=== PATIENT | male | born 1950 | race Caucasian/White ===

== ENCOUNTER 2016-11-06 20:12 | Inpatient (IN) | payer MEDICARE, OTHER ==
[~2016-11-06] VITALS: Ht 193 cm; Wt 83.4 kg
[2016-11-06 20:00] VITALS: BP 147/74
[2016-11-06] MEDS ORDERED: [UNRECOGNIZED DRUG - OTHER] PO (20:34)
[2016-11-06] MEDS ORDERED: HYDROmorphone 1 MG/ML, 1ML ONE (21:18)
[2016-11-06] MEDS: PLEASE ENTER ALLERGIES MC SCH ×2 (21:30)
[2016-11-06] MEDS ORDERED: ENALAPRILAT 1.25 MG/ML, 2ML IVPush PRN (21:30)
[2016-11-06] MEDS ORDERED: HYDROmorphone 1 MG/ML, 1ML IV ONE (21:30)
[2016-11-06] MEDS ORDERED: TEMAZEPAM 15 MG CAPSULE PO PRN (21:30)
[2016-11-06] MEDS ORDERED: ONDANSETRON ODT 4 MG PO PRN (21:30)
[2016-11-06] MEDS: ENOXAPARIN 40 MG/0.4 ML SQ SCH (22:00)
[2016-11-06 23:12] LABS: IS PT STATUS REG ER OR PRE ER? NO
[2016-11-07 01:20] LABS: BLOOD UREA NITROGEN 31 mg/dL (7-18)
[2016-11-07 02:00] VITALS: BP 123/69
[2016-11-07] MEDS ORDERED: OMNIPAQUE 350 MG/ML, 100ML BOTTLE ONE (02:47)
[2016-11-07] MEDS: HYDROmorphone 2 MG/ML, 1ML IVPush PRN ×5 (02:52→22:29)
[2016-11-07] MEDS: SODIUM CHLORIDE 0.9% 1,000 ML IV SCH ×2 (02:57→18:16)
[2016-11-07 03:53] LABS: BLOOD UREA NITROGEN 30 mg/dL (7-18)
[2016-11-07 03:57] LABS: IS PT STATUS REG ER OR PRE ER? NO
[2016-11-07 04:27] LABS: DIFF TOTAL CELLS COUNTED 100 CELL DIFF; HEMOGLOBIN 12.2 g/dL (13.7-18.0); WHITE BLOOD COUNT 19.5 x10^3/uL (3.4-10)
[2016-11-07] MEDS ORDERED: ALBUTEROL SULFATE 2.5 MG/3 ML NPPB PRN (04:30)
[2016-11-07] MEDS: PLEASE ENTER ALLERGIES MC SCH ×6 (04:33→19:14)
[2016-11-07 04:37] LABS: VERIFY COUNTS? YES
[2016-11-07 04:38] LABS: ANISOCYTOSIS 1+; MICROCYTOSIS 1+; POLYCHROMASIA 1+
[2016-11-07 08:14] VITALS: BP 162/74
[2016-11-07] MEDS: SENNA/DOCUSATE TABLET PO SCH (08:14)
[2016-11-07] MEDS ORDERED: FENTANYL 25 MCG PATCH TD SCH (12:30)
[2016-11-07] MEDS ORDERED: FENTANYL REMOVE PATCH NOTE XX SCH (12:31)
[2016-11-07 13:53] VITALS: BP 125/74
[2016-11-07] MEDS: MAGNESIUM OXIDE 400 MG TABLET PO SCH (13:57)
[2016-11-07 20:00] VITALS: BP 127/69
[2016-11-07] MEDS: ENOXAPARIN 40 MG/0.4 ML SQ SCH (21:36)
[2016-11-08 02:00] VITALS: BP 125/69
[2016-11-08] MEDS: SODIUM CHLORIDE 0.9% 1,000 ML IV SCH (02:40)
[2016-11-08] MEDS: HYDROmorphone 2 MG/ML, 1ML IVPush PRN ×4 (02:50→21:16)
[2016-11-08 05:16] LABS: HEMATOCRIT 38.1 % (39.2-51.8); HEMOGLOBIN 12.4 g/dL (13.7-18.0); WHITE BLOOD COUNT 22.1 x10^3/uL (3.4-10)
[2016-11-08 05:44] LABS: HIV 1&2 ANTIBODY SCREEN Nonreactive (Nonreactive); HIV-1 p24 ANTIGEN Nonreactive (Nonreactive)
[2016-11-08 05:53] LABS: DIFF TOTAL CELLS COUNTED 100 CELL DIFF
[2016-11-08 06:03] LABS: ANISOCYTOSIS 1+; VERIFY COUNTS? YES
[2016-11-08 06:04] LABS: POLYCHROMASIA 1+
[2016-11-08 06:09] LABS: ASPARTATE AMINO TRANSFERASE 318 U/L (15-37); BLOOD UREA NITROGEN 49 mg/dL (7-18)
[2016-11-08 07:01] VITALS: BP 135/57
[2016-11-08] MEDS: SENNA/DOCUSATE TABLET PO SCH (08:18)
[2016-11-08] MEDS: ONDANSETRON 2MG/ML, 2ML IV PRN (08:18)
[2016-11-08] MEDS: MAGNESIUM OXIDE 400 MG TABLET PO SCH (08:18)
[2016-11-08] MEDS ORDERED: LIDOCAINE 1%, 20ML ONE (09:42)
[2016-11-08] MEDS ORDERED: SODIUM POLYSTYRENE SULFONATE ORAL SUSP PO ONE (10:00)
[2016-11-08] MEDS ORDERED: MIDAZOLAM 1 MG/ML, 5ML ONE (10:17)
[2016-11-08] MEDS ORDERED: FENTANYL PF 100 MCG/2ML ONE (10:17)
[2016-11-08 12:26] LABS: BLOOD UREA NITROGEN 60 mg/dL (7-18)
[2016-11-08 12:32] LABS: IS PT STATUS REG ER OR PRE ER? NO
[2016-11-08 12:43] LABS: FERRITIN 2642.8 ng/mL (26-388); TOTAL IRON BINDING CAPACITY 254 mcg/dL (250-450)
[2016-11-08 13:10] LABS: LACTATE DEHYDROGENASE > 4000 U/L (87-241)
[2016-11-08 13:28] VITALS: BP 133/59
[2016-11-08] MEDS ORDERED: RASBURICASE 3 MG in SODIUM CHLORIDE 0.9% 50 ML IV ONE (16:00)
[2016-11-08] MEDS: GABAPENTIN 100 MG CAPSULE PO SCH ×2 (17:26→20:49)
[2016-11-08 18:46] VITALS: BP 134/65
[2016-11-08] MEDS ORDERED: ENOXAPARIN 40 MG/0.4 ML SQ SCH (22:00)
[2016-11-09 01:05] VITALS: BP 144/64
[2016-11-09] MEDS ORDERED: SODIUM CHLORIDE 0.9% 1,000 ML IV SCH (02:05)
[2016-11-09] MEDS: SODIUM CHLORIDE 0.9% 1,000 ML IV SCH ×5 (03:27→20:41)
[2016-11-09] MEDS: HYDROmorphone 2 MG/ML, 1ML IVPush PRN ×2 (05:12→17:02)
[2016-11-09 05:49] LABS: BLOOD UREA NITROGEN 64 mg/dL (7-18)
[2016-11-09 05:52] LABS: ASPARTATE AMINO TRANSFERASE 529 U/L (15-37)
[2016-11-09 06:05] LABS: HEMATOCRIT 34.5 % (39.2-51.8); HEMOGLOBIN 11.3 g/dL (13.7-18.0); WHITE BLOOD COUNT 16.1 x10^3/uL (3.4-10)
[2016-11-09 06:06] LABS: DIFF TOTAL CELLS COUNTED 100 CELL DIFF
[2016-11-09 06:15] LABS: ANISOCYTOSIS 1+; POLYCHROMASIA 1+; VERIFY COUNTS? YES
[2016-11-09 07:44] VITALS: BP 162/66
[2016-11-09] MEDS: MAGNESIUM OXIDE 400 MG TABLET PO SCH (08:10)
[2016-11-09] MEDS: GABAPENTIN 100 MG CAPSULE PO SCH ×2 (08:13→20:31)
[2016-11-09] MEDS: SENNA/DOCUSATE TABLET PO SCH (08:13)
[2016-11-09 13:10] VITALS: BP 141/62
[2016-11-09] MEDS ORDERED: RASBURICASE 3 MG in SODIUM CHLORIDE 0.9% 50 ML IV ONE (13:30)
[2016-11-09 20:30] VITALS: BP 135/69
[2016-11-10 01:17] VITALS: BP 143/67
[2016-11-10] MEDS: SODIUM CHLORIDE 0.9% 1,000 ML IV SCH ×3 (03:10→20:49)
[2016-11-10 04:57] LABS: HEMATOCRIT 32.5 % (39.2-51.8); HEMOGLOBIN 10.8 g/dL (13.7-18.0); WHITE BLOOD COUNT 10.6 x10^3/uL (3.4-10)
[2016-11-10 05:03] LABS: BLOOD UREA NITROGEN 44 mg/dL (7-18)
[2016-11-10 05:07] LABS: ASPARTATE AMINO TRANSFERASE 352 U/L (15-37)
[2016-11-10 07:09] LABS: DIFF TOTAL CELLS COUNTED 100 CELL DIFF
[2016-11-10 07:18] LABS: VERIFY COUNTS? YES
[2016-11-10 07:19] LABS: ANISOCYTOSIS 1+; POLYCHROMASIA 1+
[2016-11-10 07:25] VITALS: BP 131/65
[2016-11-10] MEDS: HYDROmorphone 2 MG/ML, 1ML IVPush PRN ×2 (08:38→20:49)
[2016-11-10] MEDS: SENNA/DOCUSATE TABLET PO SCH (08:39)
[2016-11-10] MEDS: MAGNESIUM OXIDE 400 MG TABLET PO SCH (08:39)
[2016-11-10] MEDS: GABAPENTIN 100 MG CAPSULE PO SCH ×2 (08:39→20:50)
[2016-11-10] MEDS: ALLOPURINOL 100 MG TABLET PO SCH ×2 (11:19→20:50)
[2016-11-10 13:15] VITALS: BP 147/69
[2016-11-10 19:51] VITALS: BP 124/63
[2016-11-11 02:13] VITALS: BP 147/65
[2016-11-11 05:03] LABS: BLOOD UREA NITROGEN 35 mg/dL (7-18)
[2016-11-11 05:06] LABS: ASPARTATE AMINO TRANSFERASE 242 U/L (15-37)
[2016-11-11 05:16] LABS: DIFF TOTAL CELLS COUNTED 100 CELL DIFF; HEMATOCRIT 32.1 % (39.2-51.8); HEMOGLOBIN 10.6 g/dL (13.7-18.0); WHITE BLOOD COUNT 9.4 x10^3/uL (3.4-10)
[2016-11-11 05:21] LABS: ANISOCYTOSIS 1+; POLYCHROMASIA 1+; VERIFY COUNTS? YES
[2016-11-11] MEDS: SODIUM CHLORIDE 0.9% 1,000 ML IV SCH ×3 (05:55→23:32)
[2016-11-11 08:50] VITALS: BP 148/56
[2016-11-11] MEDS: MAGNESIUM OXIDE 400 MG TABLET PO SCH (09:20)
[2016-11-11] MEDS: GABAPENTIN 100 MG CAPSULE PO SCH ×2 (09:21→20:36)
[2016-11-11] MEDS: SENNA/DOCUSATE TABLET PO SCH (09:21)
[2016-11-11] MEDS: HYDROmorphone 2 MG/ML, 1ML IVPush PRN ×2 (09:26→20:36)
[2016-11-11] MEDS ORDERED: OMNIPAQUE 350 MG/ML, 100ML BOTTLE ONE (12:45)
[2016-11-11 14:56] VITALS: BP 147/69
[2016-11-11 19:26] VITALS: BP 144/66
[2016-11-12] MEDS: HYDROmorphone 2 MG/ML, 1ML IVPush PRN ×5 (01:08→22:01)
[2016-11-12 01:35] VITALS: BP 165/72
[2016-11-12 04:50] LABS: BLOOD UREA NITROGEN 23 mg/dL (7-18)
[2016-11-12 05:05] LABS: ASPARTATE AMINO TRANSFERASE 177 U/L (15-37)
[2016-11-12 05:10] LABS: LACTATE DEHYDROGENASE 3154 U/L (87-241)
[2016-11-12 06:06] LABS: HEMATOCRIT 32.1 % (39.2-51.8); HEMOGLOBIN 10.6 g/dL (13.7-18.0); WHITE BLOOD COUNT 8.4 x10^3/uL (3.4-10)
[2016-11-12] MEDS: POLYETHYLENE GLYCOL 17 GM PACKET PO PRN (06:06)
[2016-11-12 06:09] LABS: DIFF TOTAL CELLS COUNTED 100 CELL DIFF
[2016-11-12 06:18] LABS: ANISOCYTOSIS 1+; POLYCHROMASIA 1+; VERIFY COUNTS? YES
[2016-11-12 06:19] LABS: LARGE PLATELETS 1+
[2016-11-12 08:25] VITALS: BP 145/71
[2016-11-12] MEDS: ALLOPURINOL 300 MG TABLET PO SCH (08:37)
[2016-11-12] MEDS: MAGNESIUM OXIDE 400 MG TABLET PO SCH (08:37)
[2016-11-12] MEDS: SENNA/DOCUSATE TABLET PO SCH (08:37)
[2016-11-12] MEDS: GABAPENTIN 100 MG CAPSULE PO SCH ×2 (08:37→22:00)
[2016-11-12] MEDS: SODIUM CHLORIDE 0.9% 1,000 ML IV SCH ×2 (11:50→22:01)
[2016-11-12 13:13] VITALS: BP 156/90
[2016-11-12 19:43] VITALS: BP 165/73
[2016-11-13] MEDS: HYDROmorphone 2 MG/ML, 1ML IVPush PRN ×7 (02:07→23:59)
[2016-11-13 02:13] VITALS: BP 168/64
[2016-11-13 05:42] LABS: HEMATOCRIT 32.4 % (39.2-51.8); HEMOGLOBIN 10.7 g/dL (13.7-18.0); WHITE BLOOD COUNT 9.1 x10^3/uL (3.4-10)
[2016-11-13 05:48] LABS: ASPARTATE AMINO TRANSFERASE 138 U/L (15-37); BLOOD UREA NITROGEN 18 mg/dL (7-18)
[2016-11-13 06:13] LABS: DIFF TOTAL CELLS COUNTED 100 CELL DIFF
[2016-11-13 06:33] LABS: ANISOCYTOSIS 1+
[2016-11-13 06:34] LABS: LARGE PLATELETS 1+; POIKILOCYTOSIS 1+; POLYCHROMASIA 1+; VERIFY COUNTS? YES
[2016-11-13 06:35] VITALS: BP 133/73
[2016-11-13] MEDS: SODIUM CHLORIDE 0.9% 1,000 ML IV SCH (08:00)
[2016-11-13] MEDS ORDERED: FUROSEMIDE 20 MG/2 ML IV ONE (08:30)
[2016-11-13] MEDS: SENNA/DOCUSATE TABLET PO SCH (09:14)
[2016-11-13] MEDS: GABAPENTIN 100 MG CAPSULE PO SCH ×2 (09:14→21:13)
[2016-11-13] MEDS: MAGNESIUM OXIDE 400 MG TABLET PO SCH (09:14)
[2016-11-13] MEDS: ALLOPURINOL 300 MG TABLET PO SCH (09:14)
[2016-11-13 13:51] VITALS: BP 151/76
[2016-11-13 19:31] VITALS: BP 170/76
[2016-11-13] MEDS ORDERED: HYDROCORTISONE 100 MG INJ. IV ONE (20:30)
[2016-11-14 02:24] VITALS: BP 188/74
[2016-11-14] MEDS: HYDROmorphone 2 MG/ML, 1ML IVPush PRN ×4 (03:02→21:40)
[2016-11-14 03:32] LABS: BLOOD UREA NITROGEN 19 mg/dL (7-18)
[2016-11-14 03:58] LABS: HEMATOCRIT 32.6 % (39.2-51.8); HEMOGLOBIN 10.8 g/dL (13.7-18.0); WHITE BLOOD COUNT 9.1 x10^3/uL (3.4-10)
[2016-11-14 04:02] LABS: DIFF TOTAL CELLS COUNTED 100 CELL DIFF
[2016-11-14 04:07] LABS: VERIFY COUNTS? YES
[2016-11-14 04:08] LABS: ANISOCYTOSIS 1+; LARGE PLATELETS 1+; POIKILOCYTOSIS 1+; POLYCHROMASIA 1+
[2016-11-14 08:00] VITALS: BP 156/75
[2016-11-14] MEDS: SENNA/DOCUSATE TABLET PO SCH (09:12)
[2016-11-14] MEDS: ALLOPURINOL 300 MG TABLET PO SCH (09:12)
[2016-11-14] MEDS: MAGNESIUM OXIDE 400 MG TABLET PO SCH (09:12)
[2016-11-14] MEDS: GABAPENTIN 100 MG CAPSULE PO SCH ×2 (09:13→20:16)
[2016-11-14] MEDS ORDERED: PROCHLORPERAZINE 10MG TABLET PO PRN (13:30)
[2016-11-14 13:51] VITALS: BP 158/76
[2016-11-14 19:32] VITALS: BP 149/69
[2016-11-15 01:25] VITALS: BP 168/76
[2016-11-15] MEDS: HYDROmorphone 2 MG/ML, 1ML IVPush PRN ×3 (03:21→14:04)
[2016-11-15 03:39] LABS: HEMATOCRIT 32.5 % (39.2-51.8); HEMOGLOBIN 10.7 g/dL (13.7-18.0); WHITE BLOOD COUNT 9.6 x10^3/uL (3.4-10)
[2016-11-15 03:48] LABS: ASPARTATE AMINO TRANSFERASE 127 U/L (15-37); BLOOD UREA NITROGEN 19 mg/dL (7-18)
[2016-11-15 04:07] LABS: DIFF TOTAL CELLS COUNTED 100 CELL DIFF
[2016-11-15 04:14] LABS: ANISOCYTOSIS 1+; LARGE PLATELETS 1+; POIKILOCYTOSIS 1+; POLYCHROMASIA 1+; VERIFY COUNTS? YES
[2016-11-15 07:49] VITALS: BP 149/72
[2016-11-15] MEDS: GABAPENTIN 100 MG CAPSULE PO SCH ×2 (07:55→20:19)
[2016-11-15] MEDS: ALLOPURINOL 300 MG TABLET PO SCH (07:55)
[2016-11-15] MEDS: MAGNESIUM OXIDE 400 MG TABLET PO SCH ×2 (07:55→20:19)
[2016-11-15] MEDS: SENNA/DOCUSATE TABLET PO SCH (07:59)
[2016-11-15] MEDS ORDERED: FUROSEMIDE 20 MG/2 ML IV ONE (10:00)
[2016-11-15] MEDS ORDERED: DIPHENHYDRAMINE 50 MG/ML, 1ML IVPush ONE (10:00)
[2016-11-15] MEDS ORDERED: ACETAMINOPHEN 325 MG TABLET PO ONE (10:00)
[2016-11-15] MEDS ORDERED: FAMOTIDINE 20 MG/2 ML IVPush ONE (10:00)
[2016-11-15] MEDS ORDERED: POTASSIUM CHLORIDE 20 MEQ TAB.ER.PRT PO ONE (10:00)
[2016-11-15] MEDS ORDERED: SODIUM CHLORIDE 0.9% IV ONE (10:30)
[2016-11-15] MEDS ORDERED: RITUXIMAB IV ONE (10:30)
[2016-11-15] MEDS: ONDANSETRON 2MG/ML, 2ML IV PRN (11:39)
[2016-11-15] MEDS ORDERED: DEXAMETHASONE 4 MG/ML, 5ML ONE (12:13)
[2016-11-15] MEDS ORDERED: DEXAMETHASONE 4 MG/ML, 5ML IVPush ONE (12:30)
[2016-11-15 12:31] VITALS: BP 132/76
[2016-11-15 12:39] VITALS: BP 116/68
[2016-11-15 14:07] VITALS: BP 121/67
[2016-11-15 20:03] VITALS: BP 127/65
[2016-11-16 00:59] VITALS: BP 148/69
[2016-11-16 04:32] LABS: HEMATOCRIT 31.6 % (39.2-51.8); HEMOGLOBIN 10.3 g/dL (13.7-18.0); WHITE BLOOD COUNT 6.8 x10^3/uL (3.4-10)
[2016-11-16 04:37] LABS: ASPARTATE AMINO TRANSFERASE 284 U/L (15-37); BLOOD UREA NITROGEN 33 mg/dL (7-18)
[2016-11-16] MEDS: HYDROmorphone 2 MG/ML, 1ML IVPush PRN ×3 (04:50→20:02)
[2016-11-16 05:01] LABS: DIFF TOTAL CELLS COUNTED 100 CELL DIFF
[2016-11-16 05:06] LABS: VERIFY COUNTS? YES
[2016-11-16 05:07] LABS: ANISOCYTOSIS 1+; POLYCHROMASIA 1+
[2016-11-16 05:09] LABS: LARGE PLATELETS 1+
[2016-11-16 06:30] VITALS: BP 134/71
[2016-11-16] MEDS: predniSONE 50MG TABLET PO SCH (08:31)
[2016-11-16] MEDS: GABAPENTIN 100 MG CAPSULE PO SCH ×2 (08:31→19:49)
[2016-11-16] MEDS: SENNA/DOCUSATE TABLET PO SCH (08:31)
[2016-11-16] MEDS: MAGNESIUM OXIDE 400 MG TABLET PO SCH (08:31)
[2016-11-16] MEDS: ALLOPURINOL 300 MG TABLET PO SCH (08:31)
[2016-11-16] MEDS: ONDANSETRON 16 MG, DEXAMETHASONE 10 MG in SODIUM CHLORIDE 0.9% 50 ML IVPB SCH (10:07)
[2016-11-16] MEDS ORDERED: CYCLOPHOSPHAMIDE IV SCH (10:30)
[2016-11-16] MEDS ORDERED: vinCRIStine 1 MG in SODIUM CHLORIDE 0.9% 25 ML IV SCH (10:30)
[2016-11-16] MEDS ORDERED: SODIUM CHLORIDE 0.9% IV SCH (10:30)
[2016-11-16 12:49] VITALS: BP 144/81
[2016-11-16] MEDS: POLYETHYLENE GLYCOL 17 GM PACKET PO PRN (16:30)
[2016-11-16 19:09] VITALS: BP 150/73
[2016-11-17 02:04] VITALS: BP 148/72
[2016-11-17] MEDS: HYDROmorphone 2 MG/ML, 1ML IVPush PRN (05:30)
[2016-11-17 05:36] LABS: ASPARTATE AMINO TRANSFERASE 212 U/L (15-37); BLOOD UREA NITROGEN 36 mg/dL (7-18)
[2016-11-17 05:49] LABS: LACTATE DEHYDROGENASE > 4000 U/L (87-241)
[2016-11-17 05:54] LABS: HEMATOCRIT 31.9 % (39.2-51.8); HEMOGLOBIN 10.5 g/dL (13.7-18.0); WHITE BLOOD COUNT 4.4 x10^3/uL (3.4-10)
[2016-11-17 05:55] LABS: DIFF TOTAL CELLS COUNTED 100 CELL DIFF
[2016-11-17 05:59] LABS: ANISOCYTOSIS 1+; POLYCHROMASIA 1+; VERIFY COUNTS? YES
[2016-11-17 06:52] VITALS: BP 154/73
[2016-11-17] MEDS: POLYETHYLENE GLYCOL 17 GM PACKET PO PRN (08:34)
[2016-11-17] MEDS: GABAPENTIN 100 MG CAPSULE PO SCH ×2 (08:35→21:18)
[2016-11-17] MEDS: SENNA/DOCUSATE TABLET PO SCH (08:35)
[2016-11-17] MEDS: predniSONE 50MG TABLET PO SCH (08:35)
[2016-11-17] MEDS: ALLOPURINOL 300 MG TABLET PO SCH (08:36)
[2016-11-17] MEDS: ONDANSETRON 16 MG, DEXAMETHASONE 10 MG in SODIUM CHLORIDE 0.9% 50 ML IVPB SCH ×2 (12:00→12:09)
[2016-11-17] MEDS ORDERED: ONDANSETRON 16 MG in SODIUM CHLORIDE 0.9% 50 ML IVPB ONE (12:30)
[2016-11-17 13:21] VITALS: BP 146/77
[2016-11-17] MEDS ORDERED: SODIUM CHLORIDE 0.9% 1,000 ML IV SCH (17:30)
[2016-11-17 19:28] VITALS: BP 148/72
[2016-11-18 02:54] VITALS: BP 170/77
[2016-11-18 03:08] VITALS: BP 162/83
[2016-11-18 05:31] LABS: HEMATOCRIT 27.1 % (39.2-51.8); HEMOGLOBIN 9.1 g/dL (13.7-18.0); WHITE BLOOD COUNT 2.6 x10^3/uL (3.4-10)
[2016-11-18 05:34] LABS: BLOOD UREA NITROGEN 32 mg/dL (7-18)
[2016-11-18 05:35] LABS: ASPARTATE AMINO TRANSFERASE 96 U/L (15-37)
[2016-11-18 06:04] LABS: DIFF TOTAL CELLS COUNTED 100 CELL DIFF
[2016-11-18 06:07] LABS: ANISOCYTOSIS 1+; POLYCHROMASIA 1+; VERIFY COUNTS? YES
[2016-11-18 07:07] VITALS: BP 164/62
[2016-11-18] MEDS: predniSONE 50MG TABLET PO SCH (09:04)
[2016-11-18] MEDS: ALLOPURINOL 300 MG TABLET PO SCH (09:04)
[2016-11-18] MEDS: SENNA/DOCUSATE TABLET PO SCH (09:05)
[2016-11-18] MEDS: GABAPENTIN 100 MG CAPSULE PO SCH ×2 (09:05→20:14)
[2016-11-18] MEDS: POLYETHYLENE GLYCOL 17 GM PACKET PO PRN (09:20)
[2016-11-18 12:15] VITALS: BP 163/84
[2016-11-18] MEDS ORDERED: HYDROCORTISONE 100 MG INJ. IV PRN ×2 (17:00)
[2016-11-18] MEDS ORDERED: TBO-FILGRASTIM 480 MCG/0.8 ML SQ PRN (17:00)
[2016-11-18] MEDS: SODIUM CHLORIDE 0.9% 1,000 ML IV SCH (18:13)
[2016-11-18 19:48] VITALS: BP 159/79
[2016-11-19 02:18] VITALS: BP 164/70
[2016-11-19 05:57] LABS: ASPARTATE AMINO TRANSFERASE 32 U/L (15-37); BLOOD UREA NITROGEN 7 mg/dL (7-18)
[2016-11-19 07:09] VITALS: BP 164/73
[2016-11-19] MEDS: SENNA/DOCUSATE TABLET PO SCH (07:49)
[2016-11-19] MEDS: predniSONE 50MG TABLET PO SCH (07:49)
[2016-11-19] MEDS: ALLOPURINOL 300 MG TABLET PO SCH (07:49)
[2016-11-19] MEDS: GABAPENTIN 100 MG CAPSULE PO SCH ×2 (07:49→20:06)
[2016-11-19 09:14] LABS: HEMATOCRIT 31.9 % (39.2-51.8); HEMOGLOBIN 10.6 g/dL (13.7-18.0); WHITE BLOOD COUNT 3.1 x10^3/uL (3.4-10)
[2016-11-19 10:08] LABS: DIFF TOTAL CELLS COUNTED 100 CELL DIFF
[2016-11-19 10:13] LABS: ANISOCYTOSIS 1+; POLYCHROMASIA 1+; VERIFY COUNTS? YES
[2016-11-19 13:44] VITALS: BP 142/68
[2016-11-19 19:30] VITALS: BP 159/79
[2016-11-19] MEDS: SODIUM CHLORIDE 0.9% 1,000 ML IV SCH (22:17)
[2016-11-20 01:40] VITALS: BP 184/77
[2016-11-20 03:10] VITALS: BP 161/71
[2016-11-20 05:56] LABS: BLOOD UREA NITROGEN 20 mg/dL (7-18)
[2016-11-20 06:00] LABS: ASPARTATE AMINO TRANSFERASE 55 U/L (15-37)
[2016-11-20 06:18] LABS: HEMATOCRIT 27.3 % (39.2-51.8); HEMOGLOBIN 9.2 g/dL (13.7-18.0); WHITE BLOOD COUNT 2.7 x10^3/uL (3.4-10)
[2016-11-20 06:19] LABS: DIFF TOTAL CELLS COUNTED 100 CELL DIFF
[2016-11-20 06:22] LABS: ANISOCYTOSIS 1+; POLYCHROMASIA 1+
[2016-11-20 06:25] LABS: VERIFY COUNTS? YES
[2016-11-20 06:45] VITALS: BP 155/68
[2016-11-20] MEDS: GABAPENTIN 100 MG CAPSULE PO SCH ×2 (08:52→19:43)
[2016-11-20] MEDS: ALLOPURINOL 300 MG TABLET PO SCH (08:52)
[2016-11-20] MEDS: predniSONE 50MG TABLET PO SCH (08:52)
[2016-11-20] MEDS: SENNA/DOCUSATE TABLET PO SCH (08:52)
[2016-11-20 13:05] VITALS: BP 150/70
[2016-11-20 16:35] LABS: IS PT STATUS REG ER OR PRE ER? NO
[2016-11-20] MEDS ORDERED: OMNIPAQUE 350 MG/ML, 100ML BOTTLE ONE (17:19)
[2016-11-20 19:16] VITALS: BP 132/77
[2016-11-20] MEDS: FUROSEMIDE 20 MG/2 ML IV SCH (19:43)
[2016-11-20] MEDS: POTASSIUM CHLORIDE 20 MEQ TAB.ER.PRT PO SCH (19:43)
[2016-11-21 03:10] VITALS: BP 152/72
[2016-11-21 05:03] LABS: ASPARTATE AMINO TRANSFERASE 51 U/L (15-37); BLOOD UREA NITROGEN 18 mg/dL (7-18)
[2016-11-21 05:10] LABS: IS PT STATUS REG ER OR PRE ER? NO
[2016-11-21 05:20] LABS: HEMATOCRIT 26.9 % (39.2-51.8); HEMOGLOBIN 9.1 g/dL (13.7-18.0); WHITE BLOOD COUNT 2.9 x10^3/uL (3.4-10)
[2016-11-21 05:47] LABS: DIFF TOTAL CELLS COUNTED 100 CELL DIFF; VERIFY COUNTS? YES
[2016-11-21 05:48] LABS: ANISOCYTOSIS 1+
[2016-11-21 05:49] LABS: POLYCHROMASIA 1+
[2016-11-21 07:10] VITALS: BP 156/79
[2016-11-21] MEDS: GABAPENTIN 100 MG CAPSULE PO SCH ×2 (09:30→19:39)
[2016-11-21] MEDS: POTASSIUM CHLORIDE 20 MEQ TAB.ER.PRT PO SCH ×2 (09:30→19:39)
[2016-11-21] MEDS: FUROSEMIDE 20 MG/2 ML IV SCH ×2 (09:30→19:39)
[2016-11-21] MEDS: SENNA/DOCUSATE TABLET PO SCH (09:30)
[2016-11-21] MEDS: ALLOPURINOL 300 MG TABLET PO SCH (09:30)
[2016-11-21 13:05] VITALS: BP 117/74
[2016-11-21 19:05] VITALS: BP 130/74
[2016-11-22 01:30] VITALS: BP 144/72
[2016-11-22] MEDS: FUROSEMIDE 20 MG/2 ML IV SCH ×2 (07:50→17:49)
[2016-11-22] MEDS: ALLOPURINOL 300 MG TABLET PO SCH (07:51)
[2016-11-22] MEDS: GABAPENTIN 100 MG CAPSULE PO SCH ×2 (07:51→20:41)
[2016-11-22] MEDS: SENNA/DOCUSATE TABLET PO SCH (07:51)
[2016-11-22] MEDS: POTASSIUM CHLORIDE 20 MEQ TAB.ER.PRT PO SCH ×2 (07:51→17:50)
[2016-11-22 07:54] VITALS: BP 111/66
[2016-11-22 13:50] VITALS: BP 146/75
[2016-11-22 19:29] VITALS: BP 130/76
[2016-11-22] MEDS: MEGESTROL ACETATE 400 MG/10 ML ML PO SCH (20:43)
[2016-11-23] VITALS (11 sets, daily range): BP systolic 113–135; BP diastolic 57–76
[2016-11-23] MEDS: SENNA/DOCUSATE TABLET PO SCH (08:46)
[2016-11-23] MEDS: ALLOPURINOL 300 MG TABLET PO SCH (08:46)
[2016-11-23] MEDS: GABAPENTIN 100 MG CAPSULE PO SCH ×2 (08:46→19:55)
[2016-11-23] MEDS: POTASSIUM CHLORIDE 20 MEQ TAB.ER.PRT PO SCH ×2 (08:46→17:11)
[2016-11-23] MEDS: FUROSEMIDE 20 MG/2 ML IV SCH ×2 (08:47→17:11)
[2016-11-23 10:19] LABS: BLOOD UREA NITROGEN 15 mg/dL (7-18)
[2016-11-23 10:21] LABS: ASPARTATE AMINO TRANSFERASE 33 U/L (15-37)
[2016-11-23 10:39] LABS: HEMOGLOBIN 7.8 g/dL (13.7-18.0)
[2016-11-23 10:40] LABS: HEMATOCRIT 22.6 % (39.2-51.8); WHITE BLOOD COUNT 1.7 x10^3/uL (3.4-10)
[2016-11-23 10:41] LABS: DIFF TOTAL CELLS COUNTED 100 CELL DIFF
[2016-11-23 10:52] LABS: VERIFY COUNTS? YES
[2016-11-23 10:53] LABS: ANISOCYTOSIS 1+; POLYCHROMASIA 1+
[2016-11-23] MEDS ORDERED: ACETAMINOPHEN 325 MG TABLET PO ONE (11:00)
[2016-11-23] MEDS ORDERED: DIPHENHYDRAMINE 25 MG CAPSULE PO ONE (11:00)
[2016-11-23] MEDS: MEGESTROL ACETATE 400 MG/10 ML ML PO SCH (20:56)
[2016-11-24 05:15] VITALS: BP 115/68
[2016-11-24 06:09] LABS: ASPARTATE AMINO TRANSFERASE 26 U/L (15-37); BLOOD UREA NITROGEN 15 mg/dL (7-18)
[2016-11-24 06:25] LABS: HEMATOCRIT 29.6 % (39.2-51.8); HEMOGLOBIN 10.1 g/dL (13.7-18.0)
[2016-11-24 06:49] LABS: DIFF TOTAL CELLS COUNTED 100 CELL DIFF
[2016-11-24 06:52] LABS: ANISOCYTOSIS 1+; POLYCHROMASIA 1+; VERIFY COUNTS? YES
[2016-11-24 07:23] VITALS: BP 109/60
[2016-11-24] MEDS: FUROSEMIDE 20 MG/2 ML IV SCH (08:14)
[2016-11-24] MEDS: SENNA/DOCUSATE TABLET PO SCH (08:14)
[2016-11-24] MEDS: ALLOPURINOL 300 MG TABLET PO SCH (08:14)
[2016-11-24] MEDS: GABAPENTIN 100 MG CAPSULE PO SCH (08:15)
[2016-11-24] MEDS: POTASSIUM CHLORIDE 20 MEQ TAB.ER.PRT PO SCH (08:15)
[2016-11-24] MEDS ORDERED: GABA-826 PO (11:56)
[2016-11-24] MEDS ORDERED: ONDA4TAB13 PO (11:56)
[2016-11-24] MEDS ORDERED: ALLO300T PO (11:56)
[2016-11-24] MEDS ORDERED: MEGE400O4 PO (11:56)
[2016-11-24] MEDS ORDERED: MORP15TA3 PO (11:56)
[2016-11-24] MEDS ORDERED: SENN1TAB7 PO (11:56)
[2016-11-24 13:24] VITALS: BP 116/67
[2016-11-25] MEDS ORDERED: FUROSEMIDE 20 MG TABLET PO SCH (09:00)
[2016-11-25] MEDS ORDERED: POTASSIUM CHLORIDE 20 MEQ TAB.ER.PRT PO SCH (09:00)
== END 2016-11-24 16:00 | DRG 823 ==
LOC: 4WST 20:17 → 3NW 11-10 16:45
PROVIDERS: ADMIT Internal Medicine; ATTEND Family Medicine
PROC: 07B63ZX Excision of Left Axillary Lymphatic, Percutaneous Approach, Diagnostic (ICD-10-PCS; principal; 2016-11-08)
PROC: 07DR3ZX Extraction of Iliac Bone Marrow, Percutaneous Approach, Diagnostic (ICD-10-PCS; 2016-11-08)
PROC: 02HV33Z Insertion of Infusion Device into Superior Vena Cava, Percutaneous Approach (ICD-10-PCS; 2016-11-13)
PROC: B5181ZA Fluoroscopy of Superior Vena Cava using Low Osmolar Contrast, Guidance (ICD-10-PCS; 2016-11-13)
PROC: B548ZZA Ultrasonography of Superior Vena Cava, Guidance (ICD-10-PCS; 2016-11-13)
PROC: 3E04305 Introduction of Other Antineoplastic into Central Vein, Percutaneous Approach (ICD-10-PCS; 2016-11-14)
PROC: 30233N1 Transfusion of Nonautologous Red Blood Cells into Peripheral Vein, Percutaneous Approach (ICD-10-PCS; 2016-11-23)
DX: C82.34 Follicular lymphoma grade IIIa, lymph nodes of axilla and upper limb (principal); J96.01 Acute respiratory failure with hypoxia; E88.3 Tumor lysis syndrome; J18.9 Pneumonia, unspecified organism; D61.818 Other pancytopenia; E87.2 Acidosis; E11.42 Type 2 diabetes mellitus with diabetic polyneuropathy; J44.0 Chronic obstructive pulmonary disease with (acute) lower respiratory infection; E87.1 Hypo-osmolality and hyponatremia; N13.30 Unspecified hydronephrosis; N17.9 Acute kidney failure, unspecified; D69.6 Thrombocytopenia, unspecified; J44.9 Chronic obstructive pulmonary disease, unspecified; R16.2 Hepatomegaly with splenomegaly, not elsewhere classified; H40.9 Unspecified glaucoma; G47.33 Obstructive sleep apnea (adult) (pediatric); D72.829 Elevated white blood cell count, unspecified; I70.0 Atherosclerosis of aorta; R32 Unspecified urinary incontinence; E87.5 Hyperkalemia; I07.1 Rheumatic tricuspid insufficiency; R59.0 Localized enlarged lymph nodes; I70.8 Atherosclerosis of other arteries; M79.89 Other specified soft tissue disorders; E79.0 Hyperuricemia without signs of inflammatory arthritis and tophaceous disease; K75.9 Inflammatory liver disease, unspecified; K82.8 Other specified diseases of gallbladder; N28.1 Cyst of kidney, acquired; R62.7 Adult failure to thrive; Z82.49 Family history of ischemic heart disease and other diseases of the circulatory system; Z79.899 Other long term (current) drug therapy; Z90.79 Acquired absence of other genital organ(s); Z85.46 Personal history of malignant neoplasm of prostate; Z86.73 Personal history of transient ischemic attack (TIA), and cerebral infarction without residual deficits; Z91.19 Patient's noncompliance with other medical treatment and regimen; Z87.891 Personal history of nicotine dependence; Z92.21 Personal history of antineoplastic chemotherapy
CPT/HCPCS: 36415; 36569; 38505; 71010; 71020; 71275; 74177; 76700; 76937; 76942; 77001; 77012; 80048; 80053; 82607; 82728; 82746; 83540; 83550; 83615; 83735; 84100; 84484; 84550; 85025; 85045; 85097; 85384; 85610; 85730; 86703; 86704; 86706; 86708; 86803; 86850; 86900; 86923; 87340; 87899; 88237; 88264; 88280; 88300; 88305; 88311; 88312; 88313; 88341; 88342; 88360; 93005; 93306; 99156; 99157; G0364; J1100; J1170; J1650; J2250; J2405; J2783; J3010; J3490; J9070; Q0162; Q9967; C1751; G0435; G0461; J1200; J1447; J1720; J1940; J7030; J7050; J7512; J9310; J9370; P9040; Q0163; S0028